=== PATIENT | male | born 1970 | race Caucasian/White ===

== ENCOUNTER 2017-12-31 20:06 | Emergency (ER) | payer OTHER ==
--- NOTE | 2017-12-31 21:35 | CT Preliminary Report ---
Exam: CT HEAD W/O IMPRESSION: No acute intracranial abnormality. [facility] SITE ID: [id number]
--- NOTE | 2017-12-31 21:35 | CT Report ---
EXAM: CT HEAD EXAM DATE: 12/31/2017 09:17 PM. CLINICAL HISTORY: Fall, loc, head trauma. COMPARISON: None. TECHNIQUE: Multiaxial CT images were obtained from the foramen magnum to the vertex. Reformats: Coron al. IV contrast: None. In accordance with CT protocol optimization, one or more of the following dose reduction techniques w ere utilized for this exam: automated exposure control, adjustment of mA and/or KV based on patient s ize, or use of iterative reconstructive technique. FINDINGS: Parenchyma: No intraparenchymal hemorrhage. No evidence of mass, midline shift, or CT findings of inf arction. Prado-white differentiation is distinct. Extraaxial Spaces: Mildly prominent retrocerebellar CSF space is likely a conor-cisterna magna. No sub dural or epidural collections identified. Ventricles: Normal in size and position. Sinuses and Orbits: Imaged paranasal sinuses, orbits, and mastoids show no significant abnormality. Bones: No evidence of fracture or calvarial defect. Other: None. IMPRESSION: No acute intracranial abnormality. [facility] Referring Provider Line: [phone] SITE ID: [id number]
--- NOTE | 2017-12-31 21:49 | ED Physician Documentation ---
PD HPI HEAD INJURY - Stated complaint Stated Complaint: HEAD LAC, GLF - Chief complaint Chief Complaint: Trauma Hd/Nk - History obtained from History obtained from: Patient, Friend - History of Present Illness Mechanism of head injury: Fell, Laceration Where head injury occurred: Work Timing - onset: Today Location of injury: Right Quality of pain: Pain Associated symptoms: LOC. No: AMS, Nausea / vomiting, Neck pain Similar symptoms before: Has not had sx before Recently seen: Not recently seen - Additional information Additional information: Patient is a 47 year old male who is presenting to the emergency department for head laceration. Patient was at work and he was moving quickly and he slipped on the floor hitting his head. Patient states that he was out for about 5 minutes. Upon initial evaluation in the emergency department patient was awake and alert. Patient had a head laceration but denied any other pain or trauma. Review of Systems Constitutional: denies: Fever, Chills Eyes: denies: Decreased vision, Photophobia Ears: denies: Drainage/discharge Nose: denies: Epistaxis Throat: denies: Dental pain / toothache Cardiac: reports: Reviewed and negative Respiratory: reports: Reviewed and negative GI: denies: Nausea, Vomiting : reports: Reviewed and negative Skin: reports: Laceration (s) Neurologic: reports: Head injury, LOC. denies: Headache Immunocompromised: denies: Immunocompromised PD PAST MEDICAL HISTORY - Past Medical History Musculoskeletal: Gout - Present Medications Home Medications: Ambulatory Orders Medication Instructions Recorded Confirmed No Known Home Medications [No 12/31/17 12/31/17 Known Home Medications] - Allergies Allergies/Adverse Reactions: Allergies Allergy/AdvReac Type Severity Reaction Status Date / Time No Known Drug Allergies Allergy Verified 12/31/17 21:07 - Social History Does the pt smoke?: Yes Smoking Status: Current every day smoker PD ED PE NORMAL - Vitals Vital signs reviewed: Yes - General General: Alert and oriented X 3, Well developed/nourished - HEENT HEENT: PERRL, Dentition benign - Neck Neck: No bony TTP - Cardiac Cardiac: RRR - Respiratory Respiratory: No respiratory distress - Abdomen Abdomen: Soft, Non distended - Extremities Extremities: No deformity, Normal ROM s pain - Neuro Neuro: Alert and oriented X 3, No motor deficit, No sensory deficit, Normal speech Eye Opening: Spontaneous Motor: Obeys Commands Verbal: Oriented GCS Score: 15 - Psych Psych: Normal mood PD ED PE EXPANDED - HEENT HEENT: Head injury (3 cm stellate laceration on right side of the head) Results - Vitals Vitals: Vital Signs - 24 hr 12/31/17 20:24 Temperature 36.0 C L Heart Rate 64 Respiratory 18 Rate Blood Pressure 146/103 H O2 Saturation 100 Oxygen O2 Source Room air - Rads (name of study) ct head Radiology: Final report received (no acute intracranial pathology) Procedures - Laceration (location) right head Length in cm: 3 Wound type: Stellate Neurovascular status: Sensory intact, Vascular intact Wound Preparation: Irrigated copiously NS Skin layer closure: Dermabond, Steri strips Other: Patient tolerated well, No complications, Dressing applied, Tetanus UTD Complexity: Simple PD MEDICAL DECISION MAKING - ED course Complexity details: reviewed old records, reviewed results, re-evaluated patient , d/w patient ED course: Patient was seen and examined at bedside. Patient was sent for imaging. When patient returned the results were reviewed. There was no intracranial pathology. Patient's laceration was repaired as described above. Patient required no further work up and was stable for discharge with outpatient follow up. Departure - Departure Disposition: 01 Home, Self Care Clinical Impression: Laceration Condition: Good Instructions: ED Laceration Facial Skin Glue Follow-Up: primary,care provider [Other] - As Needed Comments: Your CT today was within normal limits. there is no sign of any intracranial bleeding. You should keep the area clean and dry. If the strips come off in the next few days you should replace it. Otherwise it will fall off on its own over the next week or so. You should monitor for signs of infection and follow up with your doctor for any of those signs. You should return to the emergency department for change in mental status, change in vision, new worsening or uncontrollable symptoms. Forms: Activity restrictions
[2017-12-31 21:56] VITALS: BP 146/92
== END 2017-12-31 21:56 | disposition home or self-care (01) ==
LOC: ED 20:06
DX: S01.01XA Laceration without foreign body of scalp, initial encounter (principal); W01.0XXA Fall on same level from slipping, tripping and stumbling without subsequent striking against object, initial encounter; Y99.0 Civilian activity done for income or pay; M10.9 Gout, unspecified; F17.200 Nicotine dependence, unspecified, uncomplicated
CPT/HCPCS: 1040M; 12002; 70450; 99283; 99284

== ENCOUNTER 2018-09-23 09:57 | Outpatient (CLI) | payer OTHER ==
--- NOTE | 2018-09-23 12:06 | MRI Report ---
Reason: CARPAL TUNNEL SYNDROME, UNSP UPPER ABNORMAL REFLEX Procedure Date: 09/23/2018 Accession Number: [id number] / [id number] Procedure: MRI - Cervical Spine W/O CPT Code: FULL RESULT: EXAM: MRI CERVICAL SPINE WITHOUT CONTRAST EXAM DATE: 09/23/2018 10:10 AM. CLINICAL HISTORY: Neck pain. Carpal tunnel syndrome. Abnormal reflex. COMPARISONS: None. TECHNIQUE: Multiplanar, multisequence T1-weighted and fluid-sensitive sequences of the cervical spine without contrast. Other: None. FINDINGS: No suspicious marrow replacement is present. No abnormal signal is seen in the cervical spinal cord. There is scattered buckling of ligamentum flavum greatest at C3-C4 and C5 through C7. C2-C3: No posterior disk protrusion. C3-C4: A mild posterior disk protrusion is seen. Disk/osteophyte complex formation is seen along the posterior lateral margin of disk bilaterally greater on the left relative to the right. Bilateral uncovertebral joint spurring is seen. Bilateral foraminal stenosis is present. Central canal measures 9 to 10 mm. C4-C5: Bilateral uncovertebral joint spurring is seen. Left foraminal stenosis is present. C5-C6: A mild posterior disk protrusion is seen. Disk/osteophyte complex formation is seen involving the posterior lateral margin of the disk much greater on the right relative to left. Bilateral uncovertebral joint spurring is seen. Bilateral foraminal stenosis is seen greater on the right relative to the left. Central canal measures 7-8 mm. C6-C7: A minimal posterior lateral protrusion is seen bilaterally greater on the right relative to the left. Bilateral uncovertebral joint spurring is seen greater on the right relative to the left. C7-T1: No posterior disk protrusion. Scattered facet hypertrophy is present. Grade 1 retrolisthesis of C5 relative to C6 is noted. IMPRESSION: 1. Degenerative disk disease, osteophyte formation, and uncovertebral joint spurring are seen at scattered levels discussed in detail. 2. These degenerative changes are greatest at C3-C4 and at C5-C6. There is a borderline central canal at C3-C4 and there is at least mild central canal stenosis at C5-C6. 3. Multilevel foraminal stenosis is present. This is greatest bilaterally at C5-C6 particularly on the right. 4. Accounting for artifact, no definite abnormal signal is seen in the cervical spinal cord. [facility]
== END 2018-09-23 09:58 | disposition home or self-care (01) ==
LOC: DI 09:57
PROVIDERS: ATTEND Orthopaedic Surgery
DX: M50.31 Other cervical disc degeneration, high cervical region (principal); M48.02 Spinal stenosis, cervical region; M25.78 Osteophyte, vertebrae; G56.00 Carpal tunnel syndrome, unspecified upper limb; R29.2 Abnormal reflex
CPT/HCPCS: 72141

== ENCOUNTER 2019-01-02 11:04 | Day surgery (SDC) | payer OTHER ==
[~2019-01-02 11:04] MED LIST: ceFAZolin 2 GM/50 ML 2 GM/50 ML BAG IV ONE
[2019-01-02] MEDS ORDERED: BUPIVACAINE 0.25% PF 10 ML VIAL ONE (11:12)
--- NOTE | 2019-01-02 11:21 | ANESTHESIA ---
Pre-Anesthesia VS, & Labs - Diagnosis right wrist carpal tunnel syndrome - Procedure right carpal tunnel release Vital Signs: Temp Pulse Resp BP Pulse Ox 36.9 C 57 L 18 125/82 H 98 01/02/19 11:10 01/02/19 11:10 01/02/19 11:10 01/02/19 11:10 01/02/19 11:10 Height 6 ft 3 in Weight (kg) 97.52 kg Body Mass Index 24.3 - NPO >8 hours Home Medications and Allergies Home Medications: Ambulatory Orders Cholecalciferol (Vitamin D3) [Vitamin D] 50,000 unit PO OAW 12/23/18 Colchicine 0.6 mg PO PRN 10/15/18 Cholecalciferol (Vitamin D3) [Vitamin D] 50,000 unit PO OAW 12/23/18 Allergies/Adverse Reactions: Allergies Allergy/AdvReac Type Severity Reaction Status Date / Time No Known Drug Allergies Allergy Verified 12/23/18 11:20 Anes History & Medical History - Anesthetic History Anesthesia Complications: reports: No previous complications Family history of Anesthesia Complications: Denies Family history of Malignant Hyperthermia: Denies - Medical History Cardiovascular: reports: None Pulmonary: reports: None Gastrointestinal: reports: None Urinary: reports: None Musculoskeletal: reports: Gout, Other Endocrine/Autoimmune: reports: None Skin: reports: None Smoking Status: Current every day smoker Exam General: Alert, Oriented x3, Cooperative, No acute distress Dental: Other (caps) Mouth Openin Fingerbreadth Neck Mobility: Normal Mallampati classification: II Thyromental Distance: greater than 6 cm Respiratory: Lungs clear, Normal breath sounds, No respiratory distress, No accessory muscle use Cardiovascular: Regular rate, Normal S1, Normal S2, No murmurs Mental/Cognitive Status: Alert/Oriented X3, Normal for patient Plan Anesthesia Type: General Consent for Procedure(s) Verified and Reviewed: Yes Code Status: Attempt Resuscitation ASA classification: 1-Healthy patient Is this case an emergency?: No
[2019-01-02] MEDS ORDERED: LACTATED RINGERS 1,000 ML IV ONE (11:22)
[2019-01-02] MEDS ORDERED: DEXAMETHASONE 4 MG/ML VIAL IVP ONE (11:57)
[2019-01-02] MEDS ORDERED: ONDANSETRON 4 MG/2 ML VIAL IVP ONE (11:57)
[2019-01-02] MEDS ORDERED: fentaNYL 100 MCG/2 ML VIAL IVP ONE (11:57)
[2019-01-02] MEDS ORDERED: PROPOFOL 200 MG/20 ML VIAL IVP ONE (11:57)
[2019-01-02] MEDS ORDERED: LIDOCAINE-MPF 2% 5 ML VIAL IM ONE (11:57)
[2019-01-02] MEDS ORDERED: ACETAMINOPHEN 1,000 MG/100 ML 100 ML IV ONE ×2 (11:57→13:21)
[2019-01-02] MEDS ORDERED: BUPIVACAINE 0.25% PF 30 ML VIAL SUBQ ONE ×2 (12:21→12:55)
[2019-01-02] MEDS ORDERED: oxyCODONE 5 MG TABLET PO PRN (13:12)
[2019-01-02] MEDS ORDERED: ONDANSETRON 4 MG/2 ML VIAL IVP PRN (13:12)
--- NOTE | 2019-01-02 13:33 | OPERATIVE REPORT ---
Operative Report - General Procedure Date: 01/02/19 Planned Procedure: Right open carpal tunnel release Pre-Op Diagnosis: Right carpal tunnel syndrome Procedure Performed: Right open carpal tunnel release Post Op Diagnosis: Right carpal tunnel syndrome - Procedure Note Primary Surgeon: ROCK JJ Secondary Surgeon: FAHEEM ROTHMAN Anesthesia Technique: General LMA Estimated Blood Loss (mL): 15 - Other Other Information/Narrative: Tourniquet Time: 20 minutes at 250mmHg. Specimen(s) Information: None Complication(s): None Condition: Stable to recovery Indications for Surgery: The patient is a 48-year-old right hand dominant male with approximately 6-year history of intermittent right hand numbness in the median nerve distribution, worse with repetitive wrist flexion/extension and gripping activities. Clinical exam and EMG consistent with right carpal tunnel syndrome. They had failed non-operative management and desired surgical intervention. Risks of surgery were discussed to include bleeding, infection, postoperative wrist stiffness, damage to nerves (including the median nerve and recurrent motor branch to the thenar musculature), vessels, tendons, ligaments, anesthesia complications to include medication side effects and allergic reactions, blood clot, stroke, heart attack and even . After a discussion, they wished to proceed. Findings: Thickened transverse carpal ligament Descriptions of Procedure: The patient was met in the Preoperative Holding Area, at which time preoperative paperwork was confirmed. The right volar hand was signed. The patient was then brought to Main Operating Room, placed supine on the Operating Room table, at which time pre procedure timeout was conducted to confirm correct patient, correct extremity and correct procedure and also to confirm presence and sterility of all required equipment and to confirm that antibiotics were being administered in the form of 2g of intravenous Ancef. After this was confirmed, general anesthesia was induced. The operative extremity was then prepped and draped over a hand table in the normal sterile fashion after a well-padded tourniquet was placed on the proximal arm. A final timeout was conducted to confirm the correct patient, correct extremity and correct procedure and to confirm that antibiotics had been administered within 30 minutes of incision time. The operative extremity was then exsanguinated with an Esmarch bandage and tourniquet inflated to 250mmHg. Beard's cardinal line, and the proximal projection of the radial border of the fourth digit was marked on the hand. A 3cm longitudinal incision was made with a #15 blade through skin and subcutaneous tissue. Dissection was further carried out with tenotomy scissors. Small crossing vessels were coagulated with bipolar electrocautery, the palmar fascia was exposed, and split longitudinally in line with its fibers, the fat was retracted ulnarly, and the transverse carpal ligament was exposed. A 15 blade was used to make a small incision in the transverse carpal ligament, and then a small mosquito clamp was introduced directly deep to the ligament above the contents of the carpal tunnel to gently free off any adhesions between the deep surface of the transverse carpal ligament and the median nerve. Dissection was carried distally under direct visualization, releasing the transverse carpal ligament until the palmar fat was was visualized. Digital examination was p erformed to ensure that there were no remaining tight bands constricting the nerve. Attention was then turned proximally, and the transverse carpal ligament was sharply incised under direct visualization. Using metzenbaum scissors, the planes superficial and deep to the TCL were developed and then the scissors were used to release the remaining transverse carpal ligament and approximately 2cm of the distal antebrachial fascia. A freer was then passed proximally and distally to ensure no constrictive bands were present. This was confirmed with digital palpation. Satisfied that the carpal tunnel had been completely released, the wound was irrigated, and the tourniquet was let down. Pressure was held on the incision for approximately 5 minutes, and bleeding points were then cauterized with bipolar electrocautery. After ensuring good hemostasis, the wound was again irrigated and then closed using 4-0 Nylon in interrupted vertical and horizontal mattress fashion. 15 mL of quarter percent Marcaine plain, was injected into the sandra-incisional soft tissues. The wound was then dressed with Xeroform, 4 x 4 gauze, christian, webril and a compressive Oz wrap. The patient was then awakened from general anesthesia without complication, brought to the Post Anesthesia Care for further recovery. Postoperative Plan: 1. The patient will be discharged from the Same Day Surgery Unit when discharge criteria are met. 2. The patient will remain in a soft dressing until follow-up. They can begin gentle wrist range of motion on postoperative day #1 or #2 as pain allows. 3. The patient will follow up in 6 days for a wound check and range of motion check. He will return for suture removal and steri-strip placement the following week. 4. Expect return to full duty in 6-8 weeks, they may have wrist stiffness postoperatively.
[2019-01-02 14:22] VITALS: BP 122/78
== END 2019-01-02 11:05 | disposition home or self-care (01) ==
LOC: SDS 11:04
PROVIDERS: ATTEND Orthopaedic Surgery
PROC: 01N50ZZ Release Median Nerve, Open Approach (ICD-10-PCS; principal; 2019-01-02 12:30)
DX: G56.01 Carpal tunnel syndrome, right upper limb (principal); F17.210 Nicotine dependence, cigarettes, uncomplicated
CPT/HCPCS: 64721; J0131; J0690; J7120

== ENCOUNTER 2019-03-05 11:58 | Outpatient (CLI) | payer OTHER ==
[2019-03-05] MEDS ORDERED: IOTHALAMATE MEGLUMINE 50 ML VIAL ONE (12:12)
[2019-03-05] MEDS ORDERED: BUFFERED LIDOCAINE 10 ML SYRINGE ONE (12:13)
[2019-03-05] MEDS ORDERED: GADOPENTETATE DIMEGLUMINE 5 ML VIAL IVP ONE (12:13)
--- NOTE | 2019-03-05 15:11 | XRAY Report ---
Reason: PAIN IN RIGHT SHOULDER Procedure Date: 03/05/2019 Accession Number: [id number] / [id number] Procedure: FL - Arthrogram Needle Placement CPT Code: FULL RESULT: EXAM: RIGHT SHOULDER ARTHROGRAPHIC INJECTION WITH FLUOROSCOPIC GUIDANCE EXAM DATE: 03/05/2019 01:03 PM. CLINICAL HISTORY: PAIN IN RIGHT SHOULDER. COMPARISON: ARTHROGRAM SHOULDER RT 03/05/2019 1:24 PM. TECHNIQUE: The risks, benefits, and alternatives of the procedure were discussed with the patient. All questions were answered. Written and verbal consent were obtained. The glenohumeral joint was marked under fluoroscopy and prepped and draped in a sterile manner. Local anesthesia was performed with 1% lidocaine. A 22-gauge needle was then inserted into the glenohumeral joint. 10 mL of a solution containing 25% 1% lidocaine, 25% iodinated contrast, and a 1:200 dilution of gadolinium contrast in sterile saline was then injected. The needle was removed without immediate complication. Other: None. Fluoroscopy Time: 10 seconds. Number of Images: 5. FINDINGS: Bones and joints: No fracture or subluxation. Injection: Fluoroscopic images demonstrate needle placement and contrast in the glenohumeral joint. IMPRESSION: Successful fluoroscopically guided arthrographic injection of the shoulder. [facility]
--- NOTE | 2019-03-06 08:04 | MRI Report ---
Reason: PAIN IN RIGHT SHOULDER Procedure Date: 03/05/2019 Accession Number: [id number] / [id number] Procedure: MRI - Arthrogram Shoulder RT CPT Code: FULL RESULT: EXAM: RIGHT SHOULDER MRI ARTHROGRAM WITH CONTRAST EXAM DATE: 03/05/2019 01:45 PM. CLINICAL HISTORY: Pain in right shoulder. COMPARISON: None. TECHNIQUE: Multiplanar, multisequence T1-weighted and fluid-sensitive sequences of the shoulder after an arthrographic injection of dilute gadolinium, dictated under a separate exam. Other: None. FINDINGS: Rotator cuff: There is some thickening and patchy increased signal involving distal fibers of the supraspinatus and infraspinatus. There may be some calcifications within the substance of the distal infraspinatus. 3 x 6 mm focus of low-grade intrasubstance insertional tear of the supraspinatus. Fraying at the distal anterior articular surface of the supraspinatus. No high-grade or full-thickness rotator cuff tear identified. 3 mm focus of low-grade tear along the articular aspect of the infraspinatus insertion. Adjacent subcortical cyst formation. No rotator cuff muscle atrophy or fatty replacement. Long head biceps tendon: Intact demonstrating normal course, signal and morphology. Labrum: Intact. No tear is identified. Bones and articular surfaces: No significant articular cartilage defects are seen. Acromioclavicular joint: Mild degenerative change. Type II acromion. IMPRESSION: 1. Moderate supraspinatus and infraspinatus tendinosis. 2. Probable infraspinatus calcific tendinitis. 3. Small foci of low-grade distal articular surface and insertional tear of the supraspinatus and infraspinatus. No high-grade or full-thickness rotator cuff tear identified. [facility]
== END 2019-03-05 11:59 | disposition home or self-care (01) ==
LOC: DI 11:58
PROVIDERS: ATTEND Orthopaedic Surgery
DX: M75.101 Unspecified rotator cuff tear or rupture of right shoulder, not specified as traumatic (principal); M67.911 Unspecified disorder of synovium and tendon, right shoulder
CPT/HCPCS: 23350; 73222; 77002; Q9961

== ENCOUNTER 2023-03-20 01:07 | Outpatient (CLI) | payer OTHER | END 2023-03-20 01:08 | disposition critical access hospital (66) | LOC: EMS 01:07 | DX: M54.50 Low back pain, unspecified (principal); M25.552 Pain in left hip | CPT/HCPCS: A0425; A0429 ==

== ENCOUNTER 2023-03-20 01:27 | Emergency (ER) | payer OTHER ==
[2023-03-20] MEDS ORDERED: DEXAMETHASONE 10 MG/ML VIAL PO STA (01:33)
[2023-03-20] MEDS ORDERED: CHERRY SYRUP 10 ML UDC PO ONE (01:33)
[2023-03-20] MEDS ORDERED: KETOROLAC 60 MG/2 ML VIAL IM STA (01:33)
--- NOTE | 2023-03-20 01:36 | ED Physician Documentation ---
PD HPI BACK PAIN - Stated complaint Stated Complaint: BACK PAIN - History obtained from History obtained from: Patient, EMS - History of Present Illness Timing - onset: Today Timing - duration: Hours Timing - details: Abrupt onset, Still present Location: Lower, Left Quality: Pain, Spasm, Sharp Associated symptoms: No: Fever, Weakness, Numbness, Incontinent of urine, Unable to urinate, Hematuria, Incontinent of stool Improves with: Rest, Position, Meds Worsened by: Movement, Lifting, Twisting, Palpation Contributing factors: Lifting, Twisting, Other (gardening today with odd postures) Similar symptoms before: Diagnosis (back spasm) Recently seen: Not recently seen - Additional information Additional information: 52-year-old Yossi Wallace presents to the emergency department today with severe back pain. He indicates that he was gardening earlier and he has a trick knee and he uses a different posture when he goes to bend and he repeated this throughout the day and now he has severe pain in his left lower back that is radiating to his left hip denies any change in his bowel or bladder or saddle anesthesia. Review of Systems Constitutional: denies: Fever Eyes: denies: Decreased vision Ears: denies: Ear pain Nose: denies: Congestion Throat: denies: Sore throat Respiratory: denies: Cough GI: denies: Abdominal Pain, Nausea, Vomiting, Constipation, Diarrhea : denies: Dysuria, Frequency PD PAST MEDICAL HISTORY - Past Medical History Cardiovascular: None Respiratory: None Endocrine/Autoimmune: None GI: None : None HEENT: None Psych: None Musculoskeletal: Gout, Other Derm: None - Present Medications Home Medications: Ambulatory Orders Medication Instructions Recorded Confirmed Colchicine 0.6 mg PO PRN 10/15/18 Cholecalciferol (Vitamin D3) 50,000 unit PO OAW 12/23/18 01/02/19 [Vitamin D] Cyclobenzaprine [Flexeril] 10 mg PO TID PRN #20 tablet 03/20/23 HYDROcod/ACETAM 5/325 [[place] 5/325] 1 - 2 tablet PO Q6H PRN #14 tablet 03/20/23 - Allergies Allergies/Adverse Reactions: Allergies Allergy/AdvReac Type Severity Reaction Status Date / Time No Known Drug Allergies Allergy Verified 12/23/18 11:20 - Social History Does the pt smoke?: Yes Smoking Status: Current every day smoker PD ED PE NORMAL - Vitals Vital signs reviewed: Yes - General General: Alert and oriented X 3, Well developed/nourished, Other (laying in position on left side not moving ) - HEENT HEENT: Atraumatic, PERRL, EOMI - Respiratory Respiratory: No respiratory distress - Back Back: No CVA TTP, No spinal TTP, Other (left paraspinous muscle tenderness no midline tenderness. 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, No motor deficit, No sensory deficit, Normal speech Eye Opening: Spontaneous Motor: Obeys Commands Verbal: Oriented GCS Score: 15 - Psych Psych: Normal mood, Normal affect Results - Vitals Vitals: Vital Signs - 24 hr 03/20/23 03/20/23 03/20/23 01:35 02:38 06:02 Temperature 96.9 C H 36.1 C L Heart Rate 60 51 L 48 L Respiratory 16 16 15 Rate Blood Pressure 140/82 H 131/95 H 125/77 O2 Saturation 100 100 95 03/20/23 06:45 Temperature Heart Rate 51 L Respiratory 15 Rate Blood Pressure 108/84 H O2 Saturation 95 Oxygen O2 Source Room air PD Medical Decision Making - ED course Complexity details: re-evaluated patient, considered differential, d/w patient Drug Therapy Requiring Monitoring for Toxicity: This patient required an escalation in his dosage of narcotic and we placed the patient on a supervisor poultry processing for administration of intravenous Dilaudid. ED course: 52-year-old male with overuse of his back has acute spasm and he is unable to ge t up and walk without severe pain. He is administered dexamethasone 10 mg orally and 60 mg of Toradol IM. We will plan on placing him on a course of pain medication and muscle relaxant. This course of action did not lead to the patient having any significant relief of his pain. We subsequently administered a milligram of Dilaudid IM and 4 of Zofran TL and the patient developed some nausea and had about a 10% reduction in his pain. At that point we placed the patient onto a supervisor poultry processing placed an IV into his arm and administered him intravenous Dilaudid. We administered oral Flexeril as well. The patient has not been able to move around today and I suspect he is likely quite dehydrated he is administered saline as well.After multiple rounds of narcotic pain reliever the patient's is beginning to have some improvement in his pain and he is discharged to home Departure - Departure Disposition: 01 Home, Self Care Clinical Impression: Sciatica Qualifiers: Laterality: left Qualified Code(s): M54.32 - Sciatica, left side Condition: Stable Instructions: ED Sciatica Follow-Up: MARCELL PARK DO [Physician No Access] - Prescriptions: Cyclobenzaprine [Flexeril] 10 mg PO TID PRN #20 tablet PRN Reason: Spasms HYDROcod/ACETAM 5/325 [[place] 5/325] 1 - 2 tablet PO Q6H PRN #14 tablet PRN Reason: Pain Comments: Yossi, today it looks like you have sciatica which is a pinched nerve in your back and the expectation is resolution of your symptoms in 2 to 5 days. It may take as long as 10 days. Today we have given you a dose of dexamethasone which should help with hours and we have given you some Toradol which should be helping now. I [place] E [place]charge Date/Time: 03/20/23 07:02
[2023-03-20] MEDS ORDERED: HYDROcod/ACET 5/325 Prepack 4 PO STA (02:40)
[2023-03-20] MEDS ORDERED: CYCLOBENZAPRINE 10 MG Prepack 2 PO PRN (02:40)
[2023-03-20] MEDS ORDERED: HYDROmorphone 1 MG/ML CARPUJECT IM STA (03:03)
[2023-03-20] MEDS ORDERED: ONDANSETRON ODT 4 MG TABLET TL STA (03:03)
[2023-03-20] MEDS ORDERED: SODIUM CHLORIDE 0.9% 1,000 ML IV STA (03:53)
[2023-03-20] MEDS ORDERED: HYDROmorphone 1 MG/ML CARPUJECT IVP STA ×2 (03:53→04:47)
[2023-03-20] MEDS: CYCLOBENZAPRINE 10 MG TABLET PO STA ×2 (04:05→06:53)
[2023-03-20] MEDS ORDERED: MAG HYDROX/AL HYDROX/SIMETH 30 ML UDC PO STA (05:42)
[2023-03-20 06:49] VITALS: BP 108/84
== END 2023-03-20 07:02 | disposition home or self-care (01) ==
LOC: EDUNIT# → ED 01:27
DX: M54.32 Sciatica, left side (principal); F17.200 Nicotine dependence, unspecified, uncomplicated
CPT/HCPCS: 96372; 96374; 96376; 99283; 99284; A9270; J1170; Q0162

== ENCOUNTER 2023-04-10 12:18 | Outpatient (CLI) | payer OTHER ==
[~2023-04-10 12:18] MED LIST changes: +GADOBUTROL 7.5 MMOL/7.5 ML VIAL ONE; +LIDOCAINE-MPF 1% 5 ML VIAL ONE; -ceFAZolin 2 GM/50 ML 2 GM/50 ML BAG IV ONE; +iohexoL-240 10 ML VIAL IVP ONE
[2023-04-10] MEDS: iohexoL-240 10 ML VIAL IVP ONE (13:24)
[2023-04-10] MEDS: LIDOCAINE-MPF 1% 5 ML VIAL TD ONE (13:25)
[2023-04-10] MEDS: GADOBUTROL 7.5 MMOL/7.5 ML VIAL IVP ONE (13:26)
--- NOTE | 2023-04-10 16:34 | XRAY Report ---
PROCEDURE: Arthrogram Needle Placement INDICATIONS: PAIN IN LEFT HIP CONTRAST: Intra-articular contrast FLUOROSCOPY TIME: 0.2 TECHNIQUE: The indications, alternatives, benefits, risks, and complications of the procedure were explained to the patient. Written informed consent was obtained and placed in the chart. The hip was examined fl uoroscopically with the legs fixed in slight internal rotation, and a site for needle placement chose n for entry into the hip joint from an anterior approach. Care was taken to locate the common femora l artery and vein beforehand. The skin was prepped and draped in the usual fashion, and 1% Lidocaine infiltrated from skin down to joint capsule. A spinal needle was inserted into the joint, and a sma ll amount of iodinated contrast media injected to confirm intra-articular placement of the needle tip . This was followed by approximately 10 mL dilute solution of a gadolinium containing MR contrast ag ent. The needle was removed and a dressing was applied. The patient was given postprocedural instructions and sent to the MR suite for imaging. FINDINGS: A single fluoroscopic spot image demonstrates intra-articular location of injected iodinated contrast . IMPRESSION: Successful fluoroscopically guided administration of dilute Gadolinium solution into the hip joint fo r MR arthrogram. Reviewed by: Milan Maddox MD on 04/10/2023 4:33 PM PDT Approved by: Milan Maddox MD on 04/10/2023 4:33 PM PDT Station ID: [id number]
--- NOTE | 2023-04-10 21:03 | MRI Report ---
PROCEDURE: ARTHROGRAM HIP - LT INDICATIONS: PAIN IN LEFT HIP TECHNIQUE: After the administration of 10 mL of dilute intra-articular Gadolinium contrast, coronal STIR of the bony pelvis; coronal and oblique axial T1 spin echo with fat saturation, axial T2 fast spin echo with fat saturation, sagittal T1 spin echo with and without fat saturation of the involved hip. COMPARISON: None FINDINGS: Image quality: Excellent. Bones and joints: Asymmetric left worse than right bilateral hip joint osteoarthritis is seen with shultz perior joint space narrowing, subchondral sclerosis and small marginal osteophyte formation. There is no marrow edema. No intraosseous lesions or fractures. No avascular necrosis of the femoral head. The visualized lower lumbar spine appears normally aligned. The ligamental, neck, and labral plicae appear normal where visualized. Tendons and ligaments: Distal left gluteus medius and minimus tendinosis at their insertion on greate r trochanter is seen, without associated muscle atrophy. The nearby proximal iliotibial band also ap pears intact. The iliopsoas tendon appears intact, without adjacent bursal fluid collections or evid ence for impingement syndrome. Tendinosis involving origin of hamstring tendons at the ischial tubero sity is also noted. The straight and reflected heads of the rectus femoris muscle origin appear intac t, as well as the conjoint tendon. The ligamentum teres appears intact where visualized. Labrum and cartilage: There is signal abnormality and contour irregularity involving superior anterio r left hip labral at 12 to 1:00 position suggestive of superior anterior labral tear. Diffuse thinnin g of articulating cartilages over left femoral head is seen. No paralabral cysts. The alpha angle of the femur is within normal limits at less than 55 degrees. Soft tissues: Visualized muscles demonstrate normal bulk and internal signal. Quadratus femoris mus benitez demonstrates no internal edema to suggest ischiofemoral impingement. The proximal sciatic neurov ascular bundle appears normal adjacent to the hamstring tendons. No free pelvic fluid. Bladder wall thickness is normal. Genitourinary structures and bowel loops appear normal where visualized. IMPRESSION: 1.Finding is consistent with superior anterior left hip labral tear at 12 to 1:00 position. 2. Left worse than right bilateral hip joint osteoarthritis. No fracture or dislocation. No evidence of avascular necrosis of femoral head. 3. Distal left gluteus medius and minimus tendinosis at their insertions on greater trochanter. Tendi nosis involving origins of hamstring tendons at the ischial tuberosity. No other muscle or tendon sig nal abnormalities. Reviewed by: Latrell Hackett MD on 04/10/2023 9:01 PM PDT Approved by: Latrell Hackett MD on 04/10/2023 9:01 PM PDT Station ID: [id number]
== END 2023-04-10 12:19 | disposition home or self-care (01) ==
LOC: DI 12:18
PROVIDERS: ATTEND Student in an Organized Health Care Education/Training Program
DX: M16.0 Bilateral primary osteoarthritis of hip (principal); M67.952 Unspecified disorder of synovium and tendon, left thigh
CPT/HCPCS: 27093; 73722; 77002; A9585; Q9966

== ENCOUNTER 2023-05-04 17:14 | Outpatient (CLI) | payer OTHER ==
--- NOTE | 2023-05-07 09:18 | MRI Report ---
PROCEDURE: LUMBAR SPINE WO INDICATIONS: LUMBAGO TECHNIQUE: Noncontrast sagittal T1 spin echo and T2 fast echo, sagittal STIR, axial T1 and T2 fast spin echo thr ough the lumbar spine. In cases with scoliosis, additional coronal T2 fast spin echo may be performe d. COMPARISON: None. FINDINGS: Image quality: Excellent. Alignment and Curvature: There is normal bony alignment. Bone Marrow: Marrow is of normal overall signal. No acute vertebral body compression fractures. Spinal Cord: Conus medullaris terminates at the T12-L1 level. Visualized cord demonstrates normal s ignal and size. Paraspinous Soft Tissues: No paravertebral masses. T12-L1: Normal in appearance. L1-L2: Minimal disc bulge. Mild facet hypertrophy. No canal stenosis or foraminal stenosis. L2-L3: Mild disc bulge. Mild facet hypertrophy. No canal stenosis or foraminal stenosis. L3-L4: Mild to moderate chronic disc height loss. There is a prominent free disc fragment filling the left foramen obliterating the left L3 nerve root. The disc fragment has high signal, consistent with acuity. It measures approximately 1.1 x 1.4 x 0.6 cm. No central canal stenosis. The right foramen i s patent. L4-L5: Mild disc height loss. Disc bulge. Facet hypertrophy. No canal stenosis or foraminal stenosi s. L5-S1: Annulus tear plus broad-based disc bulge, eccentric to the left. There is mild posterior dev iation of the left S1 nerve root in the left lateral recess. Facet hypertrophy. No central canal sten osis. No foraminal stenosis. IMPRESSION: 1. A relatively acute-appearing free disc fragment in the left foramen at L3-L4 and obliterates the l eft L3 nerve root in the left foramen. 2. Multilevel facet hypertrophy. 3. Annulus tear plus eccentric disc bulge at L5-S1. There is mild posterior deviation of the left S1 nerve root. Question: Does this patient have any left S1 nerve root symptoms? Reviewed by: Jose Guadalupe Gomez MD on 05/07/2023 9:17 AM PDT Approved by: Jose Guadalupe Gomez MD on 05/07/2023 9:17 AM PDT Station ID: [id number]
--- NOTE | 2023-05-07 16:05 | MRI Report ---
PROCEDURE: KNEE WO - LT INDICATIONS: PAIN IN LEFT KNEE TECHNIQUE: Noncontrast sagittal PD fast spin echo and T2 fast spin echo with fat saturation, sagittal 3-D gradie nt sequence with fat saturation; coronal T1 spin echo and PD fast spin echo with fat saturation, and axial PD fast spin echo with fat saturation through the knee. COMPARISON: None. FINDINGS: Image quality: Excellent. Menisci: Medial meniscal extrusion. There is a frontal tear involving the free edge of the posterior horn the medial meniscus. The lateral meniscus demonstrates normal morphology and internal signal. T he meniscal root ligaments appear intact. Cruciate ligaments: The anterior and posterior cruciate ligaments appear intact. Medial structures: The medial collateral ligament appears intact. The tendon insertions, and obliqu e popliteal ligament, and meniscocapsular junction appear intact. Visualized portions of the pes ans erinus tendons appear normal. Small pes anserinus bursal fluid. There is subcutaneous edema in the m edial aspect of the knee joint, nonspecific. Lateral structures: The lateral collateral ligament and the biceps femoris tendon appear intact. Th e popliteus tendon appears normal. Iliotibial band appears normal. Anterior structures: The quadriceps and patellar tendons appear intact. Patellar alignment is jessenia l. No femoral trochlear dysplasia or ventral trochlear prominence. No edema in the infrapatellar fa t pad. Bones and cartilage: No bone marrow contusions or fractures. Mild cartilage thinning and fibrillatio n in the medial and lateral femorotibial compartment. Joint space: There is physiologic knee joint fluid. A small Boudreaux's cyst. Normal appearing synovial plicae are incidentally noted. IMPRESSION: 1. Medial meniscal extrusion and horizontal tear of the posterior horn the medial meniscus. 2. Small pes anserinus bursal fluid suggesting mild bursitis. 3. Mild cartilage thinning and fibrillation in the medial femorotibial compartment. 4. A small Boudreaux's cyst. Reviewed by: Althea Mccall MD on 05/07/2023 4:04 PM PDT Approved by: Althea Mccall MD on 05/07/2023 4:04 PM PDT Station ID: [id number]
== END 2023-05-04 17:15 | disposition home or self-care (01) ==
LOC: DI 17:14
PROVIDERS: ATTEND Family Medicine
DX: S83.242A Other tear of medial meniscus, current injury, left knee, initial encounter (principal); M71.22 Synovial cyst of popliteal space [Baker], left knee; M23.92 Unspecified internal derangement of left knee